=== PATIENT | male | born 1980 | race Caucasian/White ===

== ENCOUNTER 2016-09-03 11:09 | Emergency (ER) | payer OTHER ==
--- NOTE | 2016-09-03 11:21 | Emergency Department Record ---
History of Present Illness - General Chief Complaint: Back Pain/Injury Stated Complaint: BACK PAIN Time Seen by Provider: 09/03/16 11:20 Source: Patient Mode of Arrival: Ambulatory Limitations: No limitations - History of Present Illness Initial Comments: The patient was lifting some heavy objects off a truck and then twisted and felt severe pain to his lower back. The pain is much worse with any bending, twisting, or lifting. There is no pain radiating down the legs and no leg numbness, weakness, or any bowel or bladder incontinence. The patient also denies any AP or trauma. He has no hx of similar issues. MD Complaint: Back pain Onset/Timin -: Hour(s) Severity: Moderate Severity scale (1-10): 7 Quality: Aching Consistency: Constant Improves With: None Worsens With: Movement Context: Bending, Turning/twisting, While lifting - Related Data Previous Rx's Medication Instructions Recorded Cyclobenzaprine HCl [Flexeril] 10 mg PO TID PRN #20 tablet 09/03/16 Hydrocodone/Acetaminophen [[place] 1 - 2 each PO .EVERY 4-6 HRS PRN 09/03/16 5-325 Tablet] #20 tablet Naproxen [Naprosyn] 500 mg PO BID #14 tablet. 09/03/16 Allergies Allergy/AdvReac Type Severity Reaction Status Date / Time ketamine Allergy ANAPHYLAXIS Verified 09/03/16 11:19 Travel Screening - Travel/Exposure Within Last 30 Days Have you traveled within the last 30 days?: No - Travel/Exposure Within Last Year Have you traveled outside the [place] in the last year?: No - Additonal Travel Details Have you been exposed to anyone with a communicable illness?: No - Travel Symptoms Symptom Screening: None Review of Systems Constitutional: Denies: Chills, Fever Eyes: Denies: Eye discharge ENT: Denies: Congestion Respiratory: Denies: Cough, Dyspnea Past Medical History - SOCIAL HISTORY Smoking Status: Never smoker Alcohol Use: Rare Drug Use: None - RESPIRATORY Hx Respiratory Disorders: No - CARDIOVASCULAR Hx Cardio Disorders: No - NEURO Hx Neuro Disorders: No - GI Hx GI Disorders: No - Hx Genitourinary Disorders: No - ENDOCRINE Hx Diabetes: No Hx Thyroid Disease: No - MUSCULOSKELETAL Hx Musculoskeletal Disorders: No - PSYCH Hx Psych Problems: No - HEMATOLOGY/ONCOLOGY Hx Hematology/Oncology Disorders: No Family Medical History Any Significant Family History?: Yes Hx Diabetes: Mother, Grandparents Physical Exam - General General Appearance: Alert, Oriented x3, Cooperative, No acute distress - Head Head exam: Atraumatic, Normocephalic, Normal inspection - Eye Eye exam: Normal appearance, PERRL - Neck Neck exam: Normal inspection, Full ROM. negative: Tenderness - Respiratory Respiratory exam: Normal lung sounds bilaterally. negative: Respiratory distress - Cardiovascular Cardiovascular Exam: Regular rate, Normal rhythm, Normal heart sounds - GI/Abdominal GI/Abdominal exam: Soft, Normal bowel sounds. negative: Distended, Rebound, Rigid, Tenderness - Extremities Extremities exam: Normal inspection, Full ROM, Normal capillary refill. negative: Tenderness - Back Back exam: Reports: Normal inspection, Muscle spasm, Paraspinal tenderness ( There is very severe tenderness to palpation over the upper paraspinal area in the Lumbar area.), Other (Neg SLR.). Denies: Vertebral tenderness - Neurological Neurological exam: Alert, Normal gait, Oriented X3, Reflexes normal. negative: Abnormal gait, Motor sensory deficit Course Vital Signs 09/03/16 11:10 Temperature 98.4 F Pulse Rate 85 Respiratory 16 Rate Blood Pressure 129/82 Pulse Ox 98 - Reevaluation(s) Reevaluation #1: The patient is doing better at this time. He denies any pain at this time unless he is moving, twisting or bending. I did explain the xray results to him and that I feel he has a significant lumbar muscle spasm. I do not see any evidence of a herniated disc or any spinal pathology. He is to rest at home and see his Occupational health doctor later this week. 09/03/16 12:36 09/03/16 12:40 Medical Decision Making - Data Complexity MDM Data: X-Ray Ordered and/or Reviewed (L spine: No acute changes.) Disposition Disposition: Discharge Clinical Impression: Strain of muscle, fascia and tendon of lower back, initial encounter Disposition: Home, Self-Care Condition: (1) Good Instructions: Low Back Strain (ED) Additional Instructions: Please rest at home. Off work for 3 days. Please see your Occupational health doctor later this week. Take the naprosyn, flexeril and norco as directed. Return to the ER for any increased pain, vomiting, fever, or any leg numbness, weakness or any bowel or bladder issues. Prescriptions: Cyclobenzaprine HCl [Flexeril] 10 mg PO TID PRN #20 tablet PRN Reason: Pain Naproxen [Naprosyn] 500 mg PO BID #14 tablet. Hydrocodone/Acetaminophen [[place] 5-325 Tablet] 1 - 2 each PO .EVERY 4-6 HRS PRN #20 tablet PRN Reason: Pain Forms: Patient Portal Access Time of Disposition: 12:39
[2016-09-03] MEDS ORDERED: KETOROLAC 30 MG/ML VIAL IM ONE (11:25)
[2016-09-03] MEDS ORDERED: ORPHENADRINE CITRATE 60MG/2ML VIAL IM ONE (12:09)
--- NOTE | 2016-09-10 08:26 | RADIOLOGY REPORT ---
EXAM: LUMBAR SPINE, AP AND LATERAL VIEWS HISTORY: MID BACK PAIN AFTER LIFTING INJURY TODAY. TECHNIQUE: AP and lateral views of the lumbar spine were obtained as well as a spot lateral view of the lumbosacral junction. Comparison: None. Encounter: Initial. FINDINGS: There is normal bone mineralization. There are five non-rib bearing lumbar type vertebra. The vertebral bodies are normal in alignment and height. No acute fracture nor destructive bone lesion is seen. There is borderline disk space narrowing at the L4-L5 level. The intervertebral disks are otherwise maintained. The facet joints are maintained. IMPRESSION: 1. NO ACUTE OSSEOUS OR LIGAMENTOUS ABNORMALITY. 2. BORDERLINE DISK SPACE NARROWING AT THE L4-L5 LEVEL. JOB NUMBER: [id number] MTDD
== END 2016-09-03 12:45 | disposition home or self-care (01) ==
LOC: ER 11:09
DX: S39.012A Strain of muscle, fascia and tendon of lower back, initial encounter (principal); X50.0XXA Overexertion from strenuous movement or load, initial encounter; Y99.0 Civilian activity done for income or pay
CPT/HCPCS: 72100; J1885; 96372; 99283; 99284; J2360